=== PATIENT | male | born 1950 | race American Indian/Alaskan Native ===

== ENCOUNTER 2018-09-12 12:26 | Day surgery (SDC) | payer MEDICARE, OTHER ==
[2018-09-12 13:35] LABS: Basophils # (Auto) 0.1 K/mm3 (0.0-0.1); Basophils % (Auto) 1.3 % (0.0-1.8); Eosinophils # (Auto) 0.5 K/mm3 (0.0-0.4); Hematocrit 36.3 % (35.5-45.6); Hemoglobin 11.7 gm/dl (11.8-15.2); INR 1.02 (0.87-1.13); Lymphocytes # (Auto) 1.8 K/mm3 (1.2-5.4); Lymphocytes % (Auto) 23.6 % (13.4-35.0); Mean Corpuscular HGB Conc 32 % (32-34); Mean Corpuscular Volume 94 fl (84-94); Monocytes # (Auto) 0.7 K/mm3 (0.0-0.8); Monocytes % (Auto) 9.4 % (0.0-7.3); Platelet Count 346 K/mm3 (140-440); Red Blood Count 3.87 M/mm3 (3.65-5.03); Red Cell Distribution Width 14.8 % (13.2-15.2)
[2018-09-12 13:36] LABS: Partial Thromboplastin Time 31.1 Sec. (24.2-36.6)
[2018-09-12] MEDS ORDERED: DIPRIVAN 10 MG/ML IV ONE ×5 (14:02→18:28)
[2018-09-12] MEDS ORDERED: SUBLIMAZE ONE ×2 (14:03→17:01)
[2018-09-12] MEDS ORDERED: VERSED ONE ×2 (14:03→18:20)
[2018-09-12] MEDS ORDERED: NACL 0.9% 500 ML 500 ML ONE (14:04)
--- NOTE | 2018-09-12 14:06 | Anesthesia Day of Surgery ---
Anesthesia Day of Surgery - Day of Surgery Patient Examined: Yes Patient H&P Reviewed: Yes Patient is NPO: Yes Beta Blockers: Yes
[2018-09-12] MEDS ORDERED: KETALAR ONE (14:55)
[2018-09-12] MEDS ORDERED: NACL 0.9% 500 ML 500 ML IV SCH (15:00)
[2018-09-12] MEDS ORDERED: HEPARIN 10,000 UNITS/10 ML ONE (15:11)
[2018-09-12] MEDS ORDERED: HEPARIN/NS 5000 UNIT/500ML(CATH LAB) 1,000 ML IR ONE (15:11)
[2018-09-12] MEDS: XYLOCAINE 2% INFILTRATI ONE ×2 (15:22→15:43)
[2018-09-12] MEDS ORDERED: ANCEF/STERILE WATER 2 GM/20 ML 2 GM/20 ML SYRINGE IV ONE (15:27)
[2018-09-12] MEDS ORDERED: NITROGLYCERIN SYRINGE 3 ML ONE (15:27)
[2018-09-12] MEDS ORDERED: HEPARIN/NS 5000 UNIT/500ML(CATH LAB) 500 ML IR ONE ×2 (15:42→17:41)
[2018-09-12] MEDS ORDERED: NACL 0.9% 100 ML ONE (15:53)
--- NOTE | 2018-09-12 15:53 | Anesthesia Day of Surgery ---
Anesthesia Day of Surgery - Day of Surgery Patient Examined: Yes Patient H&P Reviewed: Yes Patient is NPO: Yes
[2018-09-13 19:03] VITALS: BP 141/92
--- NOTE | 2018-09-22 10:09 | Operative Report ---
Operative Report Operative Report: Procedure: Right lower extremity arteriogram Right SFA and popliteal artery angioplasty IVUS US guidance for vascular access Physician: Guille Anesthesia: MAC Indication: R big toe ulcer with gangrene Contrast: 75 cc Visipaque Heparin: 7000 units Techinique: Folllowing informed and written consent, the patient was taken to the angiographic suite and the left groin was prepped and draped in the usual sterile fashion. Intial ultrasound image of a patent left common femoral artery was taken. Lidocaine was used for local anesthetic. Using ultrasound guidance the left common femoral artery was accessed with a micropuncture access set and a 5 Fr vascular sheath inserted. A rim catheter and guidewire were utilized to cross over to the contralateral side and the rim exchanged for a 4 Fr vertebral cathether and initial images otained of the common femoral and proximal SFA. The vertebral catheter was advanced using a glide wire into the mid SFA and images to the foot obtained. A 6 Fr cross over sheath was inserted over an amplatz wire and positioned within the proximal common femoral arter which was infused with a heparinized saline flush. An IVUS catheter was advanced into the distal popliteal artery and pull-back video recording obtained to the common femoral artery. Multiple attempts weere made to cross the occluded Anterior tibial artery and peroneal artery using a combination of 0.014" crossing catheters and wires. This was however unsuccessful. At this point the areas of sever stenosis in the popliteal artery and SFA were dilated usineg a 4 mm chocolate balloon in the distal popliteal and 5 mm chocolate balloon in in the proximal and mid popliteal and within the SFA. Following balloon angioplasty post DSA imaging was obtained throughout the right lower extremity. At this point we decided to terminate the procedure the catheter and sheath removed and manual compression applied until adequate hemostasis was achieved. The patient was discharged following adequate recovery time. Findings: There is extensive calcified plaque throught the right lower extremity. Area of apprixmately 50% stenosis is persent in the mid common femoral artery. There area several areas of 75% or greater stenosis in the mid and distal SFA as well as in the mid and distal popliteal arteries. These areas measured between 5-6 mm in diameter on IVUS. Following balloon angioplasty there was good angiographic result with less than 30% residual stenosis. The right anterior tibial artey is occluded proximallty with reconstitution in the mid aspect which occludes again distally. The peroneal arter has a short segment occlusion proximally with reconstitution via extensive collaterals and then is continuous distally which reconsitutes the distal AT and dorsalis pedis via communicating branch. The posterior tibial artery is occluded proximally. There is collateral flow into the foot and lateral plantar via the peroneal artery. Digital flow indentified specifically to the great toe. Impression: 1. Severely diseased and stenositic SFA and popliteal with improved flow following balloon angioplasty 2. Occludeded AT and PT 3. Dominant run-off is via the peroneal artery. 4. Discussed with Dr. Hodges that we have improved the inflow. Patient is scheduled for partial toe ampuation on Wed. If further intervention is needed we will explore after surgery.
== END 2018-09-12 22:16 | disposition home or self-care (01) ==
LOC: CATHLABREC 12:26
PROVIDERS: ATTEND Radiology Vascular & Interventional Radiology
DX: I70.261 Atherosclerosis of native arteries of extremities with gangrene, right leg (principal); L97.518 Non-pressure chronic ulcer of other part of right foot with other specified severity; F17.210 Nicotine dependence, cigarettes, uncomplicated; I12.0 Hypertensive chronic kidney disease with stage 5 chronic kidney disease or end stage renal disease; N18.6 End stage renal disease; M19.90 Unspecified osteoarthritis, unspecified site; Z98.890 Other specified postprocedural states; Z79.899 Other long term (current) drug therapy; Z79.82 Long term (current) use of aspirin; Z99.2 Dependence on renal dialysis; Z82.49 Family history of ischemic heart disease and other diseases of the circulatory system; Z83.3 Family history of diabetes mellitus
CPT/HCPCS: 36415; 37224; 37252; 76937; 80048; 82962; 85025; 85610; 85730; C1753; C1769; C1887; C1894; J0690; J1644; J2250; J2704; J3010; J7040; Q9967

== ENCOUNTER 2019-01-02 11:18 | Day surgery (SDC) | payer MEDICARE, OTHER ==
[2019-01-02 12:43] LABS: INR 1.1 (0.87-1.13); Partial Thromboplastin Time 29.9 Sec. (24.2-36.6)
[2019-01-02 13:00] LABS: Hematocrit 34.6 % (35.5-45.6); Hemoglobin 11.2 gm/dl (11.8-15.2); Red Blood Count 3.91 M/mm3 (3.65-5.03)
[2019-01-02 13:01] LABS: Basophils # (Auto) 0.1 K/mm3 (0.0-0.1); Basophils % (Auto) 1.4 % (0.0-1.8); Eosinophils # (Auto) 0.3 K/mm3 (0.0-0.4); Eosinophils % (Auto) 3.2 % (0.0-4.3); Lymphocytes # (Auto) 1.4 K/mm3 (1.2-5.4); Lymphocytes % (Auto) 13.4 % (13.4-35.0); Mean Corpuscular HGB Conc 32 % (32-34); Mean Corpuscular Volume 89 fl (84-94); Monocytes # (Auto) 0.9 K/mm3 (0.0-0.8); Monocytes % (Auto) 8.4 % (0.0-7.3); Platelet Count 562 K/mm3 (140-440); Red Cell Distribution Width 15.1 % (13.2-15.2)
[2019-01-02 13:03] LABS: Calcium 8.5 mg/dL (8.4-10.2)
--- NOTE | 2019-01-02 13:51 | Anesthesia Day of Surgery ---
Anesthesia Day of Surgery - Day of Surgery Patient Examined: Yes Patient H&P Reviewed: Yes Patient is NPO: Yes Beta Blockers: No Cardiac Clearance: No Pulmonary Clearance: No Daniel's Test: N/A
--- NOTE | 2019-01-02 13:56 | Anesthesia Consultation ---
Anesthesia Consult and Med Hx Date of service: 01/02/19 - Airway Anesthetic Teeth Evaluation: Poor ROM Head & Neck: Adequate Mental/Hyoid Distance: Adequate Mallampati Class: Class III Intubation Access Assessment: Possibly Difficult - Pre-Operative Health Status ASA Pre-Surgery Classification: ASA4 Proposed Anesthetic Plan: MAC - Pulmonary Hx Smoking: Yes SOB: Yes (SOB w/ Exertion) - Cardiovascular System Hx Hypertension: Yes Hx Peripheral Vascular Disease: Yes - Endocrine Hx End Stage Renal Disease: Yes Hx Non-Insulin Dependent Diabetes: Yes - Other Systems Hx Cancer: No
[2019-01-02] MEDS ORDERED: HEPARIN/NS 5000 UNIT/500ML(CATH LAB) 1,000 ML IR ONE (14:49)
[2019-01-02] MEDS ORDERED: XYLOCAINE 2% INFILTRATI ONE (14:49)
[2019-01-02] MEDS ORDERED: ANCEF/STERILE WATER 2 GM/20 ML 2 GM/20 ML SYRINGE IV ONE (14:50)
[2019-01-02] MEDS ORDERED: VERSED ONE ×2 (15:18→19:25)
[2019-01-02] MEDS: HEPARIN 10,000 UNITS/10 ML ONE ×5 (15:50→18:40)
[2019-01-02] MEDS ORDERED: NACL 0.9% 1000 ML 1,000 ML ONE (16:19)
[2019-01-02] MEDS ORDERED: DIPRIVAN 10 MG/ML 1,000 MG/100 ML BOTTLE IV ONE (16:26)
[2019-01-02] MEDS ORDERED: HEPARIN/NS 5000 UNIT/500ML(CATH LAB) 500 ML IR ONE (16:36)
[2019-01-02] MEDS ORDERED: NITROGLYCERIN SYRINGE 6 ML ONE (17:20)
[2019-01-02] MEDS ORDERED: DIPRIVAN 10 MG/ML IV ONE ×5 (18:28→19:26)
[2019-01-02] MEDS: NITROGLYCERIN SYRINGE 9 ML ONE ×2 (18:28→18:30)
--- NOTE | 2019-01-02 19:21 | Short Stay Summary ---
Short Stay Documentation Date of service: 01/02/19 Narrative H&P: Right foot ulcers and gangrene - History Principal diagnosis: PAD. right foot ulcers H&P: obtained from office - Allergies and Medications Current Medications: Allergies No Known Allergies Allergy (Verified 09/12/18 12:56) Home Medications Medication Instructions Recorded Confirmed Last Taken Type Aspirin [Adult Low Dose Aspirin EC] 81 mg PO DAILY 09/12/18 01/02/19 01/01/19 History 81mg Cinacalcet HCl [Sensipar] 60 mg PO DAILY 09/12/18 01/02/19 01/01/19 History 60mg - Physical exam General appearance: no acute distress HEENT: PERRLA Lungs: Clear to auscultation Heart: Regular rate, Normal S1, Normal S2 Gastrointestinal: normal Male Genitourinary: deferred Rectal Exam: deferred Extremities: abnormal (Absent pulses on the right with scattered areas of early gangrene. 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 Post-op diagnosis: same Procedure: Right leg arteriogram with revascularization Anesthesia: MAC Findings: Refer to operative report Surgeon: BRADLEY DREW Estimated blood loss: minimal Pathology: none - Disposition Condition at discharge: Stable Disposition: DC-01 TO HOME OR SELFCARE Short Stay Discharge Plan Follow up with: RANJIT ETIENNE JR, MD [Other] - 7 Days
[2019-01-02] MEDS ORDERED: SUBLIMAZE ONE (19:25)
[2019-01-02] MEDS ORDERED: KETALAR ONE (19:26)
[2019-01-02] MEDS ORDERED: PERCOCET 5/325 PO ONE (19:27)
[2019-01-02 22:04] VITALS: BP 119/54
--- NOTE | 2019-01-16 15:26 | Operative Report ---
Operative Report Operative Report: Procedure: Right common femoral artery atherectomy and angioplasty Right femoral-polpliteal artery atherectomy and stent Right tibial peroneal artery stent placement IVUS non-coronary US guidance Indication: Right foot ischemic changes with ulcer of the big toe and lateral foot as well as gangrenous changes. Anesthesia: Provided by Anesthesia service Physician: Guille Medications: Heparin 7000 units. Nitroglycerin 400 mcg Technique: Following informed and written consent, the left groin was prepped and draped in usual sterile fashion. Using ultrasound guidance the left common femoral artery was accessed using a micropuncture access and a 5 [place] vascular sheath placed. A Glidewire was advanced into the abdominal aorta and a rim catheter was utilized to cross over to the contralateral side with a Glidewire. A 4 [place] vertebral catheter was advanced over the guidewire and positioned at the level of the external iliac artery and contrast was injected to evaluate the proximal aspect of the right lower lower extremity. The catheter was then advanced into the superficial femoral artery and DSA images using hand injection were obtained to level the foot. At this point, an Amplatz stiff wire was advanced and the catheter was removed and a 7 [place] crossover sheath was advanced and placed within the external iliac artery. A 0.014 inch guidewire was advanced into the superficial femoral artery. A 0.014 inch IVUS catheter was advanced and evaluation of the right lower extremity was performed to the level of the superficial femoral artery. Pullback video real time recording was obtained. The IVUS catheter was removed. A 2.4/3.4 jet stream atherectomy catheter was advanced over guidewire and the right common femoral artery atherectomy was performed with multiple passes using blades down and blades up technique. This was then advanced into the SFA and passes throught the mid and distal SFA performed in blades down and up position. Balloon angioplasty of the common femoral and superficial femoral arteries was performed with a 6 x 150 mm. Subsequently the common femoral artery was dilated using a 7 x 40 mm balloon. Post DSA images were obtained. A 0.018" crossing catheter and 0.014" guidewire were advanced across the area of occlusion in the popliteal artery and advanced into the peroneal artery. The rubicon was removed and the jetstream atherectomy device advanced and utilized through the popliteal artery. The peroneal artery and tibial-peroneal trunk were dilated with a 2 x 80 mm balloon. The IVUS catheter was advanced to determine sizing of the popliteal artery. The popliteal artery was then dilated with a 5 mm balloon. Post angioplasty DSA images were obtained. AT this point I elected to place stents within the popliteal artery and SFA. In the popliteal artery just above the knee joint to he adductor hiatus a [place] 6 x 80 mm stent was placed. An overlapping 6 x 150 mm Innova stent was placed in the distal and mid SFA. They were post dilated to 6 mm. DSA images were obtained which demonstrated residual and refractory stenosis in the tibial peroneal trunk and proximal peroneal artery. I elected to placed a 3.5 x 38mm [place] drug coated stent across this area. DSA images were obtained of these areas of intervetion and to the foot. Following completion, the left groin access site was removed and manual compression applied until adequate hemostasis wa achived. The patient tolerated the procedure well with no immediate complicatioins and was discharged following adequate recovery time. Findings: There is extensive atherosclerotic plaque throughout the right lower extremity. There is greater than 50% stenosis of the right common femoral artery with what appears to be a dissection which was present on previous studies. Following atherectomy and balloon angioplasty there was improved result. There area areas of moderate to high grade stenosis in the right SFA. There is occlusion of the right popliteal artery. There is narrowing of the TP turnk and proximal peroneal artery. Both the AT and PT are occluded with distal reconstitution of the DP via collateral and communicating branches from the peroneal artery. There is limited flow in the posterior tibial artery distribution. Previous attempts were made at access of the DP and PT in a retrograde fashion were unsuccessful. Following atherectomy and stent placement in the popliteal and SFA segments as well as stent placement in the TP trunk and proximal peroneal arteries there is signficant improvement overall with less than 30% stenosis in the treated segments. There is brisk flow in the peroneal. Overall the flow to the digits are limited. Impression: 1. Right common femoral artery moderate stenosis 2. Improved following atherectomy and balloon angioplasty to less than 50% 3. Right SFA moderate and high grade multi-level stenoses. 4. Less than 30% following atherectomy and stent placement 5. Occlusion of the popliteal artery 6. Successful recannalization with atherectomy and stent placement 7. High grade stenoses of the TP trunk and proximal peroneal artery 8. Resolution following drug coated stent placement 9. Patient to follow up with wound care.
== END 2019-01-02 22:20 | disposition home or self-care (01) ==
LOC: CATHLABREC 11:18
PROVIDERS: ATTEND Radiology Vascular & Interventional Radiology
DX: E11.51 Type 2 diabetes mellitus with diabetic peripheral angiopathy without gangrene (principal); I73.9 Peripheral vascular disease, unspecified; I12.0 Hypertensive chronic kidney disease with stage 5 chronic kidney disease or end stage renal disease; E11.22 Type 2 diabetes mellitus with diabetic chronic kidney disease; N18.6 End stage renal disease; M19.90 Unspecified osteoarthritis, unspecified site; F17.210 Nicotine dependence, cigarettes, uncomplicated; Z99.2 Dependence on renal dialysis; Z98.890 Other specified postprocedural states; Z83.3 Family history of diabetes mellitus; Z79.899 Other long term (current) drug therapy; Z79.82 Long term (current) use of aspirin; Z82.49 Family history of ischemic heart disease and other diseases of the circulatory system
CPT/HCPCS: 36415; 37227; 37230; 37252; 75710; 80048; 82962; 85025; 85610; 85730; C1724; C1725; C1753; C1769; C1874; C1876; C1887; J0690; J1644; J2250; J2704; J3010; J7030; Q9967